=== PATIENT | male | born 1950 | race Caucasian/White ===

== ENCOUNTER 2021-06-29 15:14 | Emergency (ER) | payer OTHER, SELFPAY ==
[2021-06-29 15:17] VITALS: PULSE 110; RESP 17; TEMP 36; BMI 21.4
--- NOTE | 2021-06-29 15:59 | XRR_ITS ---
PROCEDURE INFORMATION: Exam: XR Right Forearm Exam date and time: 06/29/2021 3:59 PM Age: 71 years old Clinical indication: Injury or trauma; Other: Dog bite; Puncture; Arm, lower; Right TECHNIQUE: Imaging protocol: XR Right forearm. Views: 2 views. COMPARISON: No relevant prior studies available. FINDINGS: Bones/joints: No fracture or other acute osseous abnormality. Soft tissues: Soft tissue swelling and soft tissue air noted in the distal forearm. No radiopaque foreign body. XR/XR forearm RT 2V [id number] IMPRESSION: 1. Soft tissue swelling and soft tissue air noted in the distal forearm. No radiopaque foreign body. 2. No acute fracture demonstrated.
--- NOTE | 2021-06-29 16:06 | ED_ITS ---
HPI - Animal Bite General: Chief Complaint: Animal Bite Stated Complaint: DOG BITE Time Seen by Provider: 06/29/21 15:22 Source: patient Mode of arrival: ambulatory Limitations: no limitations History of Present Illness: HPI narrative: Patient bit by dog that was fighting with his own dog. States the dog was a medium sized beagle. Several puncture lacerations to the right forearm with hematoma present. MD complaint: animal bite Onset (ago): hour(s) Animal: dog Description of animal: household pet and immunizations UTD Mechanism: bite Location: chest (Skin tear ) Location - Extremities: Right: arm (multiple deep puncture wounds) Pain description: dull and burning Severity scale (1-10): 5 Context: animals fighting Related Data: Patient tetanus UTD: Yes (2 years ago.) Review of Systems General: Reports: 10 or more systems reviewed and unremarkable except in HPI and below Physical Exam Const: COMMON NORMALS: no acute distress, average body habitus, patient oriented x3, no limitations, healthy appearing, alert and well nourished GENERAL APPEARANCE: cooperative, comfortable and well kempt NUTRITIONAL APPEARANCE: thin HENMT: COMMON NORMALS: normocephalic, atraumatic, hearing grossly normal bilaterally, external ears normal, EAC's normal, TM's normal bilaterally, Normal external nose present, Normal nasal mucous membranes and turbinates present, moist oral mucous membranes, oropharynx normal, dentition normal and gingiva normal HEAD & SCALP: normal to inspection, normocephalic and atraumatic NOSE: Normal external nose present and Normal nasal mucous membranes and turbinates present EXTERNAL EAR: Yes external ears normal EXTERNAL AUDITORY CANAL: EAC's normal TYMPANIC MEMBRANE: TM's normal bilaterally Eye: COMMON NORMALS: Equal, round and reactive pupils present GENERAL EYE: appearance normal, both eyes and all related structures PUPIL: Yes Equal, round and reactive pupils present Neck/C-Spine: COMMON NORMALS: full ROM, no lymphadenopathy and no JVD Lymph: LYMPHATIC: no lymphadenopathy noted Resp: COMMON NORMALS: normal respiratory effort, No retractions, No use of accessory muscles and clear to auscultation bilaterally EFFORT & INSPECTION: Yes able to speak in complete sentences AUSCULTATION: clear to auscultation bilaterally Cardio: COMMON NORMALS: no JVD, regular rate, S1 normal heart sound present and S2 normal heart sound present RATE: regular rate HEART SOUNDS: S1 normal heart sound present and S2 normal heart sound present GI: COMMON NORMALS: Normal to inspection, nondistended, normoactive bowel sounds present, Soft to palpation, non-tender, No hepatosplenomegaly present, no masses and no bruits PALPATION: Yes Soft to palpation and Yes No hepatosplenomegaly present Extremity: COMMON NORMALS: normal to inspection, full ROM, capillary refill normal, no joint enlargement, no clubbing, cyanosis or edema, no calf tenderness and no pedal edema GENERAL: Yes normal exam except as noted Neuro: COMMON NORMALS: patient oriented x3 SENSORIUM/ORIENTATION: Yes alert Psych: COMMON NORMALS: mental status grossly normal, Normal thought process present, cooperative, normal affect, speech normal, activity/motor behavior normal, denies hallucinations, denies homicidal ideation and denies suicidal ideation APPEARANCE: Yes well kempt SPEECH: Yes normal speech THOUGHT PROCESS: Normal thought process present Skin: TRAUMA: puncture (Multiple deep puncture wounds 1x1 cm in size scattered across FA. ) and other (Deep puncture flap 3cm in size. ) Procedures Laceration Laceration 1: Site: other (Forearm) Side (If applicable): right Size (cm): 1 Description: linear (deep puncture) Local Anesthetic: lidocaine 1% and with epi Pre-repair: wound explored and irrigated extensively Size (cm): 4-0 Number of sutures: 1 Technique: simple, interrupted Laceration 2: Site: other (lateral forearm) Side (If applicable): right Size (cm): 3 Description: flap Depth: involves muscle layer Local Anesthetic: lidocaine 1% Pre-repair: wound explored and irrigated extensively Skin layer closed with: nylon Size (cm): 4-0 Number of sutures: 2 Technique: simple, interrupted Course ED course: Visiting a friend and his dog whom is unvaccinated attacked him while he was smoking. Dog weighed around 50lbs. Vital Signs: Vital signs: Vital Signs Temperature 96.8 F L 06/29/21 15:17 Pulse Rate 110 H 06/29/21 15:17 Respiratory Rate 17 06/29/21 15:17 MDM - Animal Bite Differential Diagnosis: Differential diagnosis animal bite: Likely bite by animal Imaging Data^: Xray Ortho: Radiologist's impression: BAKARI Mane [id number] ReportSigned Patient: Jaqui Ross #: [id number]: [id number]#:[id number]/Sex: 71 / MADM Date: 06/29/21Loc: ERRoom/Bed:Attending Dr: Ordering Provider/Ordering MD: Barby Medina Date of Service: 06/29/21 Procedure(s): XR forearm RT 2V [id number] Accession Number(s): [id number] Report Number: [id number] PROCEDURE INFORMATION: Exam: XR Right Forearm Exam date and time: 06/29/2021 3:59 PM Age: 71 years old Clinical indication: Injury or trauma; Other: Dog bite; Puncture; Arm, lower; Right TECHNIQUE: Imaging protocol: XR Right forearm. Views: 2 views. COMPARISON: No relevant prior studies available. FINDINGS: Bones/joints: No fracture or other acute osseous abnormality. Soft tissues: Soft tissue swelling and soft tissue air noted in the distal forearm. No radiopaque foreign body. XR/XR forearm RT 2V [id number] IMPRESSION: 1. Soft tissue swelling and soft tissue air noted in the distal forearm. No radiopaque foreign body. 2. No acute fracture demonstrated. Dictated By:Tirso Avalos MDSigned By:Tirso Avalos MDSigned Date/Time:06/29/211655DD/ 55 Discharge Plan Discharge Patient Disposition: Home Clinical Impression: Bite by animal Condition: Stable Prescriptions: New Augmentin 875-125 mg tablet 1 tab PO BID 10 Days Qty: 20 RF: 0 Discharge Orders: Discharge ED (Routine); Ordered 06/29/21 Ordered By: Barby Medina Discharge Diet: Advance as tolerated Discharge Activity: Limit activity as instructed Patient Instructions: Animal Bite (ED), Opioid Safety Activity Restrictions/Additional Instructions: Follow up with PCP in 7 days. Coding Level of Care Code ED Hand Molder Meat for Gabi Fwlizette Exam Comprehensive
--- NOTE | 2021-06-29 16:47 | PC.NURSE ---
Please note additional injuries including 3 open wounds to right forearm. 2 small injuries to this arm include 1 cm skin tear (all wounds cleansed with betadine and saline solution) second smaller wound 2cm skin tear, both repaired with steri strips. 3 site on right inner forearm is flushed as ordered and pressure dressing to stop bleeding. This site will be repaired by [employer] INSPECTOR by suture wound is 3cmx 1cm x 0.3cm. 2 skin tears to left chest area around nipple area both 2 cmx1 cm, skin flap not salvageable. 2x2 with tegaderm applied to this site as well as cleaning above. 3rd site includes left forearm 2cm skin tear, repaired with steri strips. patient tolerated procedure without complaint.
--- NOTE | 2021-06-29 17:39 | PC.NURSE ---
[facility] department contacted to report animal bite as well as [place] [employer].
[2021-06-29] MEDS: rabies vaccine 2.5 unit SDV IM (18:13)
[2021-06-29 18:29] VITALS: BP 144/67; PULSE 72; RESP 16; TEMP 36.7; O2SAT 99
== END 2021-06-29 18:31 | disposition home or self-care (01) ==
PROVIDERS: Emergency Provider Nurse Practitioner Family
DX: S51.851A Open bite of right forearm, initial encounter (principal); W54.0XXA Bitten by dog, initial encounter; Z23 Encounter for immunization; Z29.14 Encounter for prophylactic rabies immune globulin; Z20.3 Contact with and (suspected) exposure to rabies
CPT/HCPCS: 12002; 73090; 90375; 90471; 90675; 96372; 99283